=== PATIENT | male | born 1950 | race Caucasian/White ===

== ENCOUNTER 2017-11-14 09:37 | Emergency (ER) | payer OTHER ==
[~2017-11-14] VITALS: Ht 172.7 cm; Wt 77.1 kg
[~2017-11-14 09:37] MED LIST: AZIT250 PO; CLON.5 PO; CLOP75 PO; CYCL10; Citalopram HBr40 MG PO; FAMO20; FAMO20 PO; FEBU40TA PO; FENO48 PO; GABA300 PO; GLIP10 PO; HYDACE25S PR; HYDCHL25 PO; LANS30EC PO; Lamictal200 MG; METF500 PO; Meribin5 MG PO; NAPR500 PO; NEBI5 PO; Norco 5-325 Ta1 EACH PO; PRAHYD1AE TOP; RANI150; SULTRIDS PO; TRADJENTA5 MG PO; TRAM50 PO; TRAZ100 PO; Vistaril50 MG PO; ZESTORETIC 20-121 EA; Zestril40 MG PO
[2017-11-14] MEDS ORDERED: ALLO100 PO (10:28)
[2017-11-14] MEDS ORDERED: ATOR20 PO (10:29)
[2017-11-14] MEDS ORDERED: CLON.1 PO (10:30)
[2017-11-14] MEDS ORDERED: TRADJENTA5 MG PO (10:32)
[2017-11-14] MEDS ORDERED: ACID REDUCER 1150 MG PO (10:32)
[2017-11-14 11:15] LABS: Calcium, Ionized (POC) 1.08 mmol/L (1.10-1.46); Chloride (POC) 111 mmol/L (98-108); Creatinine (POC) 1.5 mg/dL (0.8-1.3); Glucose (ISTAT POC) 130 mg/dL (70-99); Hemoglobin (POC) 9.2 g/dL (13.5-17.5); Potassium (POC) 3.5 mmol/L (3.5-5.5); Sodium (POC) 145 mmol/L (135-148); Total CO2 (POC) 18 mmol/L (21-32)
[2017-11-14 12:36] LABS: BASOPHILS ABSOLUTE AUTO 0.08 K/mm3 (0.00-0.23); BASOPHILS PERCENT AUTO 1 % (0-2); EOSINOPHILS ABSOLUTE AUTO 0.59 K/mm3 (0.00-0.68); EOSINOPHILS PERCENT AUTO 9 % (0-6); Hematocrit 36.5 % (37.0-53.0); Hemoglobin 12.3 g/dL (13.5-17.5); IMMATURE GRAN ABSOLUTE AUTO 0.04 K/mm3 (0.00-0.10); IMMATURE GRAN PERCENT AUTO 1 % (0-1); LYMPHOCYTES ABSOLUTE AUTO 1.07 K/mm3 (0.84-5.20); LYMPHOCYTES PERCENT AUTO 16 % (21-46); MONOCYTES ABSOLUTE AUTO 0.45 K/mm3 (0.16-1.47); MONOCYTES PERCENT AUTO 7 % (4-13); Mean Corpuscular HGB 30.2 pg (26.0-34.0); Mean Corpuscular HGB Conc 33.7 g/dL (31.5-36.5); Mean Corpuscular Volume 90 fL (80-100); Mean Platelet Volume 9.3 fL (9.1-12.4); NEUTROPHILS PERCENT AUTO 66 % (41-73); Platelet Count 361 K/mm3 (150-400); RDW Coefficient Variation 12.3 % (11.7-14.2); RDW Standard Deviation 40.3 fL (35.1-46.3); Red Blood Cell Count 4.07 M/mm3 (4.30-5.90); White Blood Cell Count 6.53 K/mm3 (4.00-11.30)
== END 2017-11-14 14:11 | disposition home or self-care (01) ==
LOC: ER 09:37
PROVIDERS: Emergency Medicine
DX: R25.1 Tremor, unspecified (principal); R55 Syncope and collapse; I10 Essential (primary) hypertension; E11.9 Type 2 diabetes mellitus without complications; Z79.899 Other long term (current) drug therapy; Z79.84 Long term (current) use of oral hypoglycemic drugs; Z87.891 Personal history of nicotine dependence
CPT/HCPCS: 80047; 82272; 83735; 85014; 85025; 93005; 93010; 96360; 96361; 99284-25; J7120

== ENCOUNTER 2018-12-27 08:39 | Emergency (ER) | payer OTHER ==
[~2018-12-27] VITALS: Ht 172.7 cm; Wt 79.4 kg
[~2018-12-27 08:39] MED LIST changes: +ACID REDUCER 1150 MG PO; +ALLO100 PO; +ATOR20 PO; +CLON.1 PO
[2018-12-27] MEDS ORDERED: CEPH500 PO (10:33)
== END 2018-12-27 10:40 | disposition home or self-care (01) ==
LOC: ER 08:39
DX: L72.3 Sebaceous cyst (principal); Z79.899 Other long term (current) drug therapy; I10 Essential (primary) hypertension; E11.9 Type 2 diabetes mellitus without complications; Z87.891 Personal history of nicotine dependence
CPT/HCPCS: 99282

== ENCOUNTER → 2021-01-01 | Outpatient (CLI) | payer OTHER ==
[~2021-01-01] MED LIST changes: +ALEN70 PO; +ALENDRONATE SOD70 MG PO; +ASPI81CH PO; -ATOR20 PO; +ATOR80 PO; +Amlodipine Bes2.5 MG PO; +CEPH500 PO; +GLIP5 PO; +METO25ER PO; +OMEPRAZOLE20 M2 PO; +ZOLP5 PO; +ZYRTEC10 M1 PO
[2021-01-01 20:05] LABS: BASOPHILS ABSOLUTE AUTO 0.09 K/mm3 (0.00-0.23); BASOPHILS PERCENT AUTO 1 % (0-2); EOSINOPHILS ABSOLUTE AUTO 0.26 K/mm3 (0.00-0.68); EOSINOPHILS PERCENT AUTO 4 % (0-6); Hematocrit 38.9 % (37.0-53.0); Hemoglobin 13.1 g/dL (13.5-17.5); IMMATURE GRAN ABSOLUTE AUTO 0.02 K/mm3 (0.00-0.10); IMMATURE GRAN PERCENT AUTO 0 % (0-1); LYMPHOCYTES ABSOLUTE AUTO 1.42 K/mm3 (0.84-5.20); LYMPHOCYTES PERCENT AUTO 19 % (21-46); MONOCYTES ABSOLUTE AUTO 0.53 K/mm3 (0.16-1.47); MONOCYTES PERCENT AUTO 7 % (4-13); Mean Corpuscular HGB 30.1 pg (26.0-34.0); Mean Corpuscular HGB Conc 33.7 g/dL (31.5-36.5); Mean Corpuscular Volume 89 fL (80-100); Mean Platelet Volume 10.5 fL (9.1-12.4); NEUTROPHILS ABSOLUTE AUTO 5.03 K/mm3 (1.96-9.15); NEUTROPHILS PERCENT AUTO 69 % (41-73); Platelet Count 240 K/mm3 (150-400); RDW Coefficient Variation 12.9 % (11.7-14.2); RDW Standard Deviation 42.6 fL (35.1-46.3); Red Blood Cell Count 4.35 M/mm3 (4.30-5.90); White Blood Cell Count 7.35 K/mm3 (4.00-11.30)
[2021-01-01 20:29] LABS: Albumin, Blood 3.6 g/dL (3.4-5.0); Albumin/Globulin Ratio 1.2 (0.8-1.8); Bilirubin, Total 0.7 mg/dL (0.1-1.0); Bun/Creatinine Ratio 10.9 (12.0-20.0); Calcium, Blood 8.5 mg/dL (8.5-10.1); Creatinine, Blood 1.38 mg/dL (0.60-1.20); Globulin, Blood 3.1 g/dL (2.2-4.0); Potassium, Blood 4.3 mmol/L (3.5-5.5); Total Protein, Blood 6.7 g/dL (6.4-8.2)
[2021-01-01 20:36] LABS: Thyroid Stimulating Hormone 1.86 uIU/mL (0.360-4.800)
== END | disposition home or self-care (01) ==
LOC: LAB SHORT 14:23
PROVIDERS: Family Medicine
DX: E11.9 Type 2 diabetes mellitus without complications (principal); R20.0 Anesthesia of skin
CPT/HCPCS: 80053; 84443; 85025

== ENCOUNTER 2021-01-06 15:27 | Inpatient (IN) | payer OTHER ==
[~2021-01-06] VITALS: Ht 170.2 cm; Wt 77.5 kg
[~2021-01-06 15:27] MED LIST changes: -ALEN70 PO; -ALENDRONATE SOD70 MG PO; -ASPI81CH PO; -Amlodipine Bes2.5 MG PO; -GLIP5 PO; -METO25ER PO; -OMEPRAZOLE20 M2 PO; -ZOLP5 PO; -ZYRTEC10 M1 PO
[2021-01-06 16:13] LABS: BASOPHILS ABSOLUTE AUTO 0.08 K/mm3 (0.00-0.23); BASOPHILS PERCENT AUTO 1 % (0-2); EOSINOPHILS ABSOLUTE AUTO 0.23 K/mm3 (0.00-0.68); EOSINOPHILS PERCENT AUTO 4 % (0-6); Hematocrit 37.5 % (37.0-53.0); IMMATURE GRAN ABSOLUTE AUTO 0.02 K/mm3 (0.00-0.10); IMMATURE GRAN PERCENT AUTO 0 % (0-1); LYMPHOCYTES ABSOLUTE AUTO 1.46 K/mm3 (0.84-5.20); LYMPHOCYTES PERCENT AUTO 22 % (21-46); MONOCYTES ABSOLUTE AUTO 0.45 K/mm3 (0.16-1.47); MONOCYTES PERCENT AUTO 7 % (4-13); Mean Corpuscular HGB 30.8 pg (26.0-34.0); Mean Corpuscular HGB Conc 34.7 g/dL (31.5-36.5); Mean Corpuscular Volume 89 fL (80-100); Mean Platelet Volume 9.6 fL (9.1-12.4); NEUTROPHILS ABSOLUTE AUTO 4.35 K/mm3 (1.96-9.15); NEUTROPHILS PERCENT AUTO 66 % (41-73); Platelet Count 210 K/mm3 (150-400); RDW Coefficient Variation 12.6 % (11.7-14.2); RDW Standard Deviation 41.1 fL (35.1-46.3); Red Blood Cell Count 4.22 M/mm3 (4.30-5.90); White Blood Cell Count 6.59 K/mm3 (4.00-11.30)
[2021-01-06] MEDS ORDERED: ZYRTEC10 M1 PO (16:17)
[2021-01-06] MEDS ORDERED: HYDCHL25 PO (16:18)
[2021-01-06] MEDS ORDERED: TRAZ100 PO (16:18)
[2021-01-06] MEDS ORDERED: Amlodipine Bes2.5 MG PO (16:18)
[2021-01-06] MEDS ORDERED: METO25ER PO (16:19)
[2021-01-06] MEDS ORDERED: ALENDRONATE SOD70 MG PO (16:19)
[2021-01-06] MEDS ORDERED: OMEPRAZOLE20 M2 PO (16:20)
[2021-01-06] MEDS ORDERED: ZOLP5 PO (16:20)
[2021-01-06] MEDS ORDERED: GLIP5 PO ×2 (16:20→20:20)
[2021-01-06 16:36] LABS: Alanine Aminotransfer (ALT/SGP 26 U/L (12-78); Albumin, Blood 3.1 g/dL (3.4-5.0); Albumin/Globulin Ratio 1.1 (0.8-1.8); Alk Phos 80 U/L (50-136); Anion Gap 7 mmol/L (6-16); Aspartate Aminotrans (AST/SGOT 17 U/L (12-37); Bilirubin, Total 0.4 mg/dL (0.1-1.0); Blood Urea Nitrogen 19 mg/dL (8-24); CO2, Blood 23 mmol/L (21-32); Calcium, Blood 8.3 mg/dL (8.5-10.1); Chloride, Blood 108 mmol/L (98-108); Creatinine, Blood 1.36 mg/dL (0.60-1.20); Globulin, Blood 2.9 g/dL (2.2-4.0); Glomerular Filtration Rate 52 (60-); Glucose, Blood 224 mg/dL (70-99); Potassium, Blood 4.2 mmol/L (3.5-5.5); Sodium, Blood 138 mmol/L (136-145); Troponin I <0.015 ng/mL (0.000-0.040)
[2021-01-06 18:33] LABS: CHOL/HDL RATIO 3.4; Cholesterol 118 mg/dL (50-200); HDL Cholesterol 35 mg/dL (>39); LDL/HDL RATIO 1.6; Low Density Lipoprotein Chol 55 mg/dL (0-110); Triglycerides 142 mg/dL (30-160); Very Low Density Lipoprot Chol 28 mg/dL (6-32)
[2021-01-06 20:13] LABS: Bilirubin, Total 0.3 mg/dL (0.1-1.0); Bun/Creatinine Ratio 12.9 (12.0-20.0); Calcium, Blood 8.2 mg/dL (8.5-10.1); Creatinine, Blood 1.39 mg/dL (0.60-1.20); Globulin, Blood 3.1 g/dL (2.2-4.0); Total Protein, Blood 6.1 g/dL (6.4-8.2)
[2021-01-06] MEDS ORDERED: CLOP75 PO (20:17)
[2021-01-06 20:18] LABS: Albumin, Blood 3.1 g/dL (3.4-5.0); Anion Gap 4 mmol/L (6-16); Blood Urea Nitrogen 17 mg/dL (8-24); Bun/Creatinine Ratio 12.1 (12.0-20.0); CO2, Blood 24 mmol/L (21-32); Calcium, Blood 8.3 mg/dL (8.5-10.1); Chloride, Blood 111 mmol/L (98-108); Glomerular Filtration Rate 50 (60-); Glucose, Blood 126 mg/dL (70-99); Phosphorus, Blood 3.3 mg/dL (2.5-4.9); Sodium, Blood 139 mmol/L (136-145)
[2021-01-06] MEDS ORDERED: ALEN70 PO (21:24)
[2021-01-06 21:28] LABS: SARS-Cov-2 (COVID-19) PCR, MMC NEGATIVE (NEGATIVE)
--- NOTE | 2021-01-07 04:21 | NUR ---
T/F AND SUMMARY: REPORT RECIEVED FROM ANASTASIA HULL RN AND PT T/F TO ROOM 324 AT 2055. HE'S A/OX4, CALLS APPROPRIATELY TO SPECIFY NEEDS AND IS SBA FOR FALLS PREVIOUS TO ADMIT R/T NEURO DEFICITS. PT REPORTS SUDDEN L.SIDE NUMBNESS W/WEAKNESS UPON AMBULATION BUT NONE WAS OBSERVED THIS SHIFT. NILA W/STRENGTH EQUAL AND INTACT BILATERALLY X4 EXTS. 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 PT ON TELEMETRY AND WAS INITIALLY S.AUBREY W/FREQ PVC'S AT 40'S BPM BUT TRENDED DOWN TO 38 BPM. PT ASYMPTOMATIC OF CARDIAC DISTRESS BUT NOTIFIED AND NEW ORDERS WERE RECIEVED: STAT EKG, MAGNESIUM LEVEL, PRN IV HYDRALAZINE FOR SBP>160 AND CLONIDINE DC'D. SHE ALSO INSTRUCTED TO NOTIFY MD IF HR SUSTAINS <35 BPM W/A CARDIOLOGY CX RX'D AND CALLED TO 'S ANS. SERVICE. SCD'S IN PLACE AND PT USED URINAL INDEPENDENTLY. HE'S DENIED NEEDS AND COMPLAINTS THIS SHIFT W/O ACUTE CHANGES. PRN HYDRALAZINE RECIEVED PER PARAMETERS AND AWAITING EFFECT, ALL OTHER VSS. WCTM AND REPORT TO DAY RN.
--- NOTE | 2021-01-07 12:54 | NUR ---
PATIENT BROUGHT TO THE [facility] FOR RECOVEERY S/P DPPM PLACEMENT. PATINET IS IN A RECLINER, PLACED ON THE MONITOR AND SLING PLACED TO THE LEFT ARM. PRESSURE DRESSING IN PLACE AND ICE PACK PLACED ORDERED. VVS. NO PAIN NOTED. TENDERNESS TO THE LEFT CHEST WALL. PATINET INSTRUCTED TO NOT TO RAISE LEFT ARM ABOVE THE SHOULDER AREA.
--- NOTE | 2021-01-07 13:27 | NUR ---
BP HAS BEEN 200'S SYSTOLIC, HYDRALAZINE 10 MG GIVEN IVP. WILL CONTINUE TO MONITOR.
--- NOTE | 2021-01-07 14:19 | NUR ---
BP 190'S SYSTOLIC. PT TO X-RAY PER W/C AT THIS TIME.
--- NOTE | 2021-01-07 15:13 | NUR ---
1925- PT ARRIVED BACK TO ROOM 324 S/P PACEMAKER PLACEMENT, RECOVERED. A/O X4. C/O PAIN IN NECK RADIATING LOWER IN BACK 11/08. STATES HUNGER AND THIRST. GOT PT FOOD AND FLUIDS. MEDICATED WITH DILAUDID PO FOR PAIN. PRESURE DRESSING INTACT TO LEFT UPPER SHOULDER, DRESSING CDI, SLING IN USE. PT AWARE OF L ARM RESTRICTIONS. CALL LIGHT IN REACH.
--- NOTE | 2021-01-07 17:17 | NUR ---
SUMMARY- PT A/O X4. DR PALOMARES PLACED DUEL PACEMAKER TODAY, RETURNED TO ROOM 1445 ELEVATED BP, HYDRALAZINE HAD BEEN ADMINISTERED AT 1322 IN RECOVERY. BP 180/78 AT 1600- PT C/O PAIN IN NECK POST PROCEDURE. STATES MIN RELEIF. CALL TO DR PALOMARES TO NOTIFY OF CONT PAIN AND CONT ELEVATED BP, BUT BP REMAINS IN NORMAL LIMITS FOR HIS HISTORY. TELE 1610 SHOWING RATE 55, 1ST DEG BLOCK, BBB. PT STATES NUMBNESS IN L ARM, PULSE PALP. SITE WITH DRESSING CDI WITH SMALL SHADOW, PRESURE DRESSING INTACT. SLING IN USE AND UNDONE FOR PT TO STRAIGHTEN ARM BELOW SIDE AND MOVE TO REGAIN FLOW, BETTER SENSATION. KNOWS LIMITS TO NOT LIFT ABOVE SHOULDER. TOLERATING FOOD AND FLUID. USES URINAL.
--- NOTE | 2021-01-07 19:20 | NUR ---
ASSUMED CARE RECEIVED REPORT FROM BLAIR CROWDER. PT RESTING, IN NAD. NO ACUTE NEEDS ASSESSED AT THIS TIME. CALL LIGHT, POSSESSIONS IN REACH, BED IN LOW AND LOCKED POSITION WITH ALARMS ON. TM
--- NOTE | 2021-01-07 23:06 | NUR ---
ORDER TO RE-CHECK CBG IN [address] SHULTZ ENTERED IN ERROR. WRONG PT.
--- NOTE | 2021-01-08 07:15 | NUR ---
SHIFT SUMMARY PT ASLEEP, IN NAD. NO ACUTE CONCERNS TO REPORT OVERNIGHT. VS REVIEWED,WNL; NO CARDIAC EVENTS REPORTED OVERNIGHT, HR STABLE. WAS MONITORED EVERY 1-2 HOURS WITH NEEDS MET. DENIES NEEDS AT THIS TIME. DRSG TO LCW C/D/I, NO DRAINAGE NOTED. PAIN MANAGED WITH MEDS PER EMAR, WITH GOOD EFFECT. CALL LIGHT, POSSESSIONS IN REACH, BED IN LOW AND LOCKED POSITION, REPORT GIVEN TO BLAIR ROB.
[2021-01-08] MEDS ORDERED: ASPI81CH PO (11:19)
--- NOTE | 2021-01-08 13:09 | NUR ---
SHIFT SUMMARY: PT ALERT AND ORIENTED ABLE TO AMBULATE TO BATHROOM WITHOUT DIZZINESS. PT PRESSURE DRESSING REMOVED AT BEDSIDE BY TODAY. PAIN IN NECK RESOLVES WITH USE OF A NECK PILLOW.
== END 2021-01-08 13:37 | disposition home or self-care (01) | DRG 243 ==
LOC: ER 15:27 → MEDS 19:36
PROVIDERS: Emergency Medicine; ADMIT Hospitalist
PROC: 0JH606Z Insertion of Pacemaker, Dual Chamber into Chest Subcutaneous Tissue and Fascia, Open Approach (ICD-10-PCS; principal; 2021-01-07)
PROC: 02HK3JZ Insertion of Pacemaker Lead into Right Ventricle, Percutaneous Approach (ICD-10-PCS; 2021-01-07)
PROC: 02H63JZ Insertion of Pacemaker Lead into Right Atrium, Percutaneous Approach (ICD-10-PCS; 2021-01-07)
DX: I44.2 Atrioventricular block, complete (principal); G45.9 Transient cerebral ischemic attack, unspecified; G81.94 Hemiplegia, unspecified affecting left nondominant side; Z66 Do not resuscitate; Z20.822 Contact with and (suspected) exposure to COVID-19; I49.5 Sick sinus syndrome; I12.9 Hypertensive chronic kidney disease with stage 1 through stage 4 chronic kidney disease, or unspecified chronic kidney disease; Z60.2 Problems related to living alone; E11.22 Type 2 diabetes mellitus with diabetic chronic kidney disease; N18.32 Chronic kidney disease, stage 3b; M10.9 Gout, unspecified; G47.00 Insomnia, unspecified; F41.8 Other specified anxiety disorders; M81.0 Age-related osteoporosis without current pathological fracture; I25.10 Atherosclerotic heart disease of native coronary artery without angina pectoris; F17.210 Nicotine dependence, cigarettes, uncomplicated; Z79.899 Other long term (current) drug therapy; Z79.02 Long term (current) use of antithrombotics/antiplatelets; Z79.84 Long term (current) use of oral hypoglycemic drugs; Z95.1 Presence of aortocoronary bypass graft
CPT/HCPCS: 33208; 36415; 71045; 71046; 80053; 80061; 80069; 82947; 83036; 83735; 84100; 84443; 84484; 85025; 93005; 93010; 93280; 93306; 99152; 99153; 99285-25; A9270; C1785; C1898; J0360; J0690; J1580; J1644; J1815; J2250; J3010; J7040; U0004

== ENCOUNTER 2021-01-26 10:11 | Emergency (ER) | payer OTHER ==
[~2021-01-26] VITALS: Ht 172.7 cm; Wt 76.2 kg
[~2021-01-26 10:11] MED LIST changes: +ALEN70 PO; +ALENDRONATE SOD70 MG PO; +ASPI81CH PO; +Amlodipine Bes2.5 MG PO; +GLIP5 PO; +METO25ER PO; +OMEPRAZOLE20 M2 PO; +ZOLP5 PO; +ZYRTEC10 M1 PO
[2021-01-26 10:45] LABS: BASOPHILS ABSOLUTE AUTO 0.09 K/mm3 (0.00-0.23); BASOPHILS PERCENT AUTO 1 % (0-2); EOSINOPHILS ABSOLUTE AUTO 0.29 K/mm3 (0.00-0.68); EOSINOPHILS PERCENT AUTO 3 % (0-6); Hematocrit 41.9 % (37.0-53.0); Hemoglobin 14.2 g/dL (13.5-17.5); IMMATURE GRAN ABSOLUTE AUTO 0.03 K/mm3 (0.00-0.10); IMMATURE GRAN PERCENT AUTO 0 % (0-1); LYMPHOCYTES PERCENT AUTO 13 % (21-46); MONOCYTES ABSOLUTE AUTO 0.72 K/mm3 (0.16-1.47); MONOCYTES PERCENT AUTO 7 % (4-13); Mean Corpuscular HGB 30.3 pg (26.0-34.0); Mean Corpuscular HGB Conc 33.9 g/dL (31.5-36.5); Mean Corpuscular Volume 89 fL (80-100); Mean Platelet Volume 9.6 fL (9.1-12.4); NEUTROPHILS ABSOLUTE AUTO 8.47 K/mm3 (1.96-9.15); NEUTROPHILS PERCENT AUTO 77 % (41-73); Platelet Count 219 K/mm3 (150-400); RDW Coefficient Variation 12.5 % (11.7-14.2); RDW Standard Deviation 40.8 fL (35.1-46.3); Red Blood Cell Count 4.69 M/mm3 (4.30-5.90)
[2021-01-26 10:58] LABS: Albumin, Blood 3.1 g/dL (3.4-5.0); Albumin/Globulin Ratio 0.9 (0.8-1.8); Bilirubin, Total 0.7 mg/dL (0.1-1.0); Bun/Creatinine Ratio 10.7 (12.0-20.0); Calcium, Blood 9.1 mg/dL (8.5-10.1); Creatinine, Blood 1.5 mg/dL (0.60-1.20); Globulin, Blood 3.5 g/dL (2.2-4.0); Potassium, Blood 4.7 mmol/L (3.5-5.5); Total Protein, Blood 6.6 g/dL (6.4-8.2)
[2021-01-26] MEDS ORDERED: ASPI325 PO (17:52)
== END 2021-01-26 18:15 | disposition home or self-care (01) ==
LOC: ER 10:11
PROVIDERS: Emergency Medicine
DX: G45.9 Transient cerebral ischemic attack, unspecified (principal); I12.9 Hypertensive chronic kidney disease with stage 1 through stage 4 chronic kidney disease, or unspecified chronic kidney disease; E11.22 Type 2 diabetes mellitus with diabetic chronic kidney disease; N18.30 Chronic kidney disease, stage 3 unspecified; I25.10 Atherosclerotic heart disease of native coronary artery without angina pectoris; F17.290 Nicotine dependence, other tobacco product, uncomplicated; Z95.0 Presence of cardiac pacemaker; Z79.899 Other long term (current) drug therapy; Z79.84 Long term (current) use of oral hypoglycemic drugs; Z79.02 Long term (current) use of antithrombotics/antiplatelets; Z79.82 Long term (current) use of aspirin
CPT/HCPCS: 36415; 70496; 70498; 80053; 85025; 93005; 93010; 99284-25; A9270; J7030; Q9967

== ENCOUNTER → 2021-11-03 | Outpatient (CLI) | payer OTHER ==
[~2021-11-03] MED LIST changes: +ASPI325 PO
== END | disposition home or self-care (01) ==
LOC: LAB 17:12 → LAB SHORT 17:12
DX: N39.0 Urinary tract infection, site not specified (principal)
CPT/HCPCS: 87086